=== PATIENT | male | born 1950 | race Caucasian/White ===

== ENCOUNTER 2018-01-06 14:11 | Observation (INO) | payer OTHER ==
[~2018-01-06] VITALS: Ht 177.8 cm; Wt 117.9 kg
[~2018-01-06 14:11] MED LIST: ASPIR 8181 MG PO; ASPIRIN EC325 M1 PO; ASPIRIN325 PO; BRILINTA90 MG PO; FISH OIL 1,001000 M2 PO; FISH OIL 500 M1 EAC1 PO; GLUCOPHAGE XR500 MG PO; HYDROCODONE-ACE15 ML PO; IMDUR 30 MG TAB30 M1 PO; LIPITOR 20 MG T20 M1 PO; LIPITOR10 MG; LISINOPRIL10 MG PO; LOPRESSOR25 PO; LORTAB 5-325 M1 EACH PO; METFORMIN HCL500 MG PO; NITRO-TIME6.5 MG PO; NITROGLYCERIN0.4 MG SUBLING; NORVASC5 MG PO; PLAVIX 75 MG TA75 M1 PO; PLAVIX 75 MG TA75 MG PO; PROTONIX40 M1 PO; RANEXA500 MG PO; SIMVASTATIN40 MG PO; SIMVASTATIN80 MG PO; TOPROL XL25 MG PO; TOPROL XL50 MG PO; XANAX 0.5 MG0.5 MG PO; ZANTAC 150MG T150 M1
[2018-01-06 14:14] VITALS: BP 169/61
[2018-01-06 14:45] LABS: ABSOLUTE BASOPHILS 0.1 thou/uL (0.0-0.2); ABSOLUTE EOSINOPHILS 0.2 thou/uL (0.0-0.7); ABSOLUTE LYMPHOCYTES 3.6 thou/uL (0.8-5.3); ABSOLUTE MONOCYTES 0.8 thou/uL (0.0-1.2); ABSOLUTE NEUTROPHILS 4.9 thou/uL (1.6-8.1); BASOPHILS 0.8 %; EOSINOPHILS 1.8 %; HEMOGLOBIN 14.1 gm/dL (14.0-18.0); LYMPHOCYTES 37.8 %; MCH 28.9 pg (26.0-34.0); MCHC 33.5 g/dL (28.0-37.0); MCV 86.3 fL (80.0-100.0); MPV 8.4 fl. (7.2-11.1); NUCLEATED RBCS 0 /100WBC; PLATELET COUNT* 296 thou/uL (150-400); POLYS 51.6 %; RBC 4.87 mil/uL (4.50-6.00); WBC 9.6 thou/uL (4.0-11.0)
[2018-01-06 14:53] LABS: ANION GAP 6 mmol/L (7-16); BUN 10 mg/dL (7-18); CALCIUM 8.7 mg/dL (8.5-10.1); CHLORIDE 104 mmol/L (98-107); CO2 31 mmol/L (21-32); CREATININE 0.9 mg/dL (0.6-1.3); GLUCOSE 198 mg/dL (70-99); POTASSIUM 3.6 mmol/L (3.5-5.1); SODIUM 141 mmol/L (136-145)
[2018-01-06 15:04] LABS: ALBUMIN 3.5 g/dL (3.4-5.0); ALKALINE PHOSPHATASE 94 U/L (46-116); LIPASE 104 U/L (73-393); NT-PRO BRAIN NAT PEPTIDE 20 pg/mL (<300); SGOT 20 U/L (15-37); SGPT 26 U/L (30-65); TOTAL BILIRUBIN 0.3 mg/dL (<0.1-1.0); TOTAL PROTEIN 7.4 g/dL (6.4-8.2); TROPONIN-I LEVEL <0.06 ng/mL (<0.06)
[2018-01-06 16:30] VITALS: BP 150/74
[2018-01-06 16:35] VITALS: BP 135/72
--- NOTE | 2018-01-06 16:37 | EKG ---
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1950 Requested By: Max Abbott Order Number: [id number] MD: Kameron Rivas Measurements Intervals [place] Rate: 63 P: 28 [place]: 167 QRS: 1 QRSD: 101 T: 36 QT: 430 QTc: 441 Interpretive Statements Sinus rhythm Abnormal R-wave progression, early transition Minimal ST depression, lateral leads Compared to ECG 05/07/2017 13:11:51 ST (T wave) deviation now present Electronically Signed On 01-06-2018 16:37:27 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
[2018-01-06 20:00] VITALS: BP 154/76
[2018-01-07 00:04] VITALS: BP 113/40
[2018-01-07 04:00] VITALS: BP 110/52
[2018-01-07 08:45] VITALS: BP 110/48
[2018-01-07 11:58] VITALS: BP 155/64
[2018-01-07 14:47] VITALS: BP 155/64
[2018-01-07 15:53] VITALS: BP 141/70
--- NOTE | 2018-01-07 15:59 | CARDNUC ---
[place] [address] CARDIAC NUCLEAR IMAGING REPORT Name: RAMAN GRACE Room: [address] MJaceRJace#: [id number] Admission: 01/06/18 Attend Phys: Rosy Gunter Discharge: Date of : 52 Date of Service: 01/07/18 1559 Report #: [id number] THIS REPORT FOR: //name// APPROVED REPORT Exam: Nuclear Stress Test Indication: CHEST PAIN Patient Location: In-Patient Room #: 203 Stress Tech: Amy Nelson Stress Nurse: Aletha Jamil RN Ht: 5 ft 10 in Wt: 259 lbs BSA: 2.33 m2 BMI: 37.15 Medical History Medical History: CAD, IL, PCI Medications: Isosorbide, metoprolol, amlodipine, ASA, fish oil Allergies: NKDA Cardiac Risk Factors: HTN, HLP, DM, former smoker Previous Cardiac Procedures: PCI Meds Held (24 hrs): Isosorbide, metoprolol Stress Test Details Stress Test: Pharmacologic stress testing performed using 0.4 mg of regadenoson per 5 mL given IV over 10 seconds. HR Resting HR: 79 bpm Max Heart Rate (APMHR): 154 bpm Max HR Achieved: 91 bpm Target HR (85% APMHR): 130 bpm % of APMHR: 59 Recovery HR: 81 bpm BP Resting BP: 156/80 mmHg Max BP: 130/77 mmHg ECG Resting ECG: Sinus Rhythm, normal EKG Stress ECG: Sinus Rhythm, normal EKG ST Change: None Arrhythmia: None Recovery ECG: Sinus Rhythm, normal EKG Recovery ST Change: [place] [address] CARDIAC NUCLEAR IMAGING REPORT Name: RAMAN GRACE Room: [address]#: [id number] Admission: 01/06/18 Attend Phys: Rosy Gunter Discharge: Date of : 52 Date of Service: 01/07/18 1559 Report #: [id number] Recovery Arrhythmia: None Clinical Reason for Termination: Completed protocol Stress Symptoms: mild chest tightness that resolved spontaneously The patient had no significant symptoms with Lexiscan infusion. Stress ECG Conclusion The baseline 12-lead electrocardiogram showed normal sinus rhythm without significant ST or T wave abnormality. EKGs during and post Lexiscan infusion show sinus rhythm with no significant ST or T wave changes when compared to baseline. There were no stress-induced arrhythmias. NM EXAM: Myocardial Perfusion REST/STRESS Imaging Protocol: Stress Tc-99m/Rest Tc-99m 2 days Pharmacologic Stress Pharmacologic stress test was performed by injecting Regadenoson 0.4 mg IV push followed by the intravenous injection of 37.0 mCi of Tc-99m Sestamibi. Time of stress injection: 1220 Date: 01/07/2018 Time of stress imagin Date: 01/07/2018 Administration Route: IV Administration Site: Left AC Heart Rate at time of stress injection: 91 bpm. Gated Stress SPECT was performed 40 minutes after stress injection. The images were gated to evaluate regional wall motion and calculate left ventricular ejection fraction. Prone imaging was performed. Study Quality Study: Good Artifact: No artifact Study Data Post stress, the left ventricular ejection was 63%.. Perfusion Post stress myocardial perfusion images show uniform uptake of the radioisotope throughout the myocardium [place] [address] CARDIAC NUCLEAR IMAGING REPORT Name: RAMAN GRACE Room: [address] M.R.#: [id number] Admission: 01/06/18 Attend Phys: Rosy Gunter Discharge: Date of : 52 Date of Service: 01/07/18 1559 Report #: [id number] Normal left ventricular wall motion. Nuclear Conclusion ECG Findings: negative for ischemia Clinical Findings: negative for ischemia Nuclear Findings: negative for ischemia Exercise Capacity: not assessed Left Ventricular Function: normal Risk Study: low Myocardial perfusion images show no defect to suggest ischemia or infarct. Left ventricular systolic function is normal on gated studies. This is a low risk study. <Conclusion> The baseline 12-lead electrocardiogram showed normal sinus rhythm without significant ST or T wave abnormality. EKGs during and post Lexiscan infusion show sinus rhythm with no significant ST or T wave changes when compared to baseline. There were no stress-induced arrhythmias. <ELECTRONICALLY SIGNED> By: Kameron Rivas MD, FACC 01/07/18 1559 1559 1559 Kameron Rivas MD, FACC /INF
--- NOTE | 2018-01-07 16:31 | CON ---
[address] [address] CONSULTATION Name: RAMAN GRACE Room: [address] Sera Bowden#: [id number] Admission: 01/06/18 Attend Phys: Matt Duque Discharge: Date of : 52 Report #: [id number] THIS REPORT FOR: //name// CC: David Gunter DATE OF SERVICE: 01/07/2018 HISTORY OF PRESENT ILLNESS: The patient is a 67-year-old white male who came to the emergency room complaining of chest pain. The patient initially presented in July 2007. He apparently had been at a convention in [place], [place]. He began to have pain in his chest, went into his back. Went into his jaw. This persisted, so he drove back to [place]. He came to the emergency room here at [facility]. He was noted to have nonspecific ST-segment changes. He underwent a cardiac catheterization by Dr. David Kimble in July 2007, that showed normal left ventricular function. The LAD and circumflex had no significant disease. The right coronary artery had a mid 90% stenosis. He apparently was then transferred over to [facility] by ambulance and Dr. Kimble placed a single stent in his right coronary artery. He actually had a repeat heart catheterization a month later by Dr. Valente here at [facility] from the right radial artery that showed an ejection fraction of 60% with no significant restenosis of the stent. It is felt his chest pain was noncardiac. He then presented in December 2015, with recurrent chest pain. Dr. Kimble performed a repeat cardiac catheterization. This was performed from the right femoral artery. He was found to have ejection fraction of 60%. The LAD had a myocardial bridge. The right coronary had mid 80% stenosis, distal edge restenosis of the stent. Dr. Kimble then placed two drug-eluting stents. During the procedure, apparently he developed ventricular fibrillation and had to be cardioverted. The patient was placed on Brilinta. I actually performed repeat cardiac catheterization in May 2017, for chest pain from the right radial artery. Ejection fraction of 60%. He was found to have no significant restenosis of the stents. It is felt his chest pain was noncardiac. The patient states he then saw Dr. Kimble in September 2017. He does not exercise on a regular basis because of chronic back pain. For the past few days, he has had some discomfort in his chest that goes into his back. It is not related to food or exertion. Occasionally, it goes into his jaw, it can make him short of breath and nauseated. He also notes he gets short of breath when he exerts himself, has had no edema, fever or cough. He notes occasional lightheadedness, no palpitation or syncope. Because of these symptoms, he came to the emergency room and was admitted last night. PAST MEDICAL HISTORY: Otherwise significant for inner ear surgery, 3 back surgeries, fatty tumor removal, removal of basal cell carcinoma, finger surgery as a child, diabetes, hypertension, [place] [address] CONSULTATION Name: RAMAN GRACE Room: [address] Sera Bowden#: [id number] Admission: 01/06/18 Attend Phys: Matt Duque Discharge: Date of : 52 Report #: [id number] MEDICATIONS: Consist of Xanax, amlodipine, aspirin, hydrocodone, Imdur, metformin, metoprolol, Protonix, and simvastatin. ALLERGIES: He has intolerance to MORPHINE. FAMILY HISTORY: His father had congestive heart failure. 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 He lives in [place] with his . Quit smoking years ago, rarely drinks alcohol. REVIEW OF SYSTEMS: He has had no history of stroke. He is overweight, standing 5 feet 9 inches and weighing 260 pounds. He has a history of sleep apnea, although he no longer uses CPAP. No history of peptic ulcer disease, liver disease, or kidney disease. He has had a basal cell carcinoma removed from his face in the past. No psychiatric illness. No chronic skin condition. PHYSICAL EXAMINATION: GENERAL: Revealed an elderly male who appeared in no distress. VITAL SIGNS: Blood pressure 110/50, pulse 60. He is afebrile. HEENT: He is anicteric. Conjunctivae are pink. Mucous membranes are moist. NECK: Veins do not appear distended. No carotid bruits heard. Neck was supple. CHEST: Clear to auscultation. HEART: Regular rate and rhythm. No significant murmur. ABDOMEN: Obese, soft, and nontender. EXTREMITIES: Had no edema. Dorsalis pedis pulse 2+ bilaterally. SKIN: Warm and dry. NEUROLOGIC: Nonfocal. LYMPH: No adenopathy. MUSCULOSKELETAL: No joint effusion. His ECG shows a sinus rhythm, no significant ST or T-wave change. His workup last night he had portable chest x-ray that showed normal heart size, clear lung lewis. Carotid Doppler study in 2014 showed no significant stenosis. His lab work last night, glucose 198, potassium 3.6, creatinine 0.9. Liver function studies were normal. Troponins all 0.06. His white blood cell count was 9.6, hemoglobin 14.1. IMPRESSION AND RECOMMENDATIONS: 1. Chest pain. The patient has had multiple stents in the right coronary artery. The pain with some features of angina. However, no evidence of acute myocardial infarction. The patient actually just had a repeat heart catheterization in May 2017, which is only a little over 6 months ago with no restenosis. Suspect pain noncardiac. At this time, I would recommend screening. Since the patient is on a beta julia, [place] [address] CONSULTATION Name: RAMAN GRACE Room: [address] MJace.#: [id number] Admission: 01/06/18 Attend Phys: Matt Duque Discharge: Date of : 52 Report #: [id number] Cardiolite. 2. History of coronary artery stenting. I would continue aspirin. 3. Hypertension. The patient is on a calcium julia, beta julia. 4. Hyperlipidemia. The patient is on a statin drug. 5. Diabetes. 6. Chronic back pain. 7. History of sleep apnea. <ELECTRONICALLY SIGNED> By: Elia Herrera MD, FACC 01/07/18 1631 0909 1022Dnicole Herrera MD, FACC /nt
== END 2018-01-07 16:30 | disposition home or self-care (01) ==
LOC: M.ERS 14:11 → M.2W 15:30 → M.TBA-ER 15:30 → M.2W 15:30
PROVIDERS: Emergency Medicine Emergency Medical Services; ADMIT Internal Medicine
DX: I16.0 Hypertensive urgency (principal); G89.29 Other chronic pain; M54.9 Dorsalgia, unspecified; E78.5 Hyperlipidemia, unspecified; I10 Essential (primary) hypertension; I25.10 Atherosclerotic heart disease of native coronary artery without angina pectoris; I25.2 Old myocardial infarction; E11.8 Type 2 diabetes mellitus with unspecified complications; F41.9 Anxiety disorder, unspecified; Z87.891 Personal history of nicotine dependence; Z95.5 Presence of coronary angioplasty implant and graft

== ENCOUNTER 2018-03-01 09:10 | Emergency (ER) | payer OTHER ==
[~2018-03-01] VITALS: Ht 177.8 cm; Wt 119.3 kg
[2018-03-01 09:40] LABS: ABSOLUTE BASOPHILS 0.1 thou/uL (0.0-0.2); ABSOLUTE EOSINOPHILS 0.2 thou/uL (0.0-0.7); ABSOLUTE MONOCYTES 0.6 thou/uL (0.0-1.2); ABSOLUTE NEUTROPHILS 5.5 thou/uL (1.6-8.1); BASOPHILS 0.7 %; HEMATOCRIT 39.7 % (42.0-52.0); HEMOGLOBIN 13.4 gm/dL (14.0-18.0); LYMPHOCYTES 31.7 %; MCH 29.2 pg (26.0-34.0); MCHC 33.7 g/dL (28.0-37.0); MCV 86.7 fL (80.0-100.0); MONOCYTES 6.7 %; MPV 8.2 fl. (7.2-11.1); NUCLEATED RBCS 0 /100WBC; PLATELET COUNT* 285 thou/uL (150-400); POLYS 58.9 %; RBC 4.58 mil/uL (4.50-6.00); RDW-CV 14.1 % (10.5-14.5); WBC 9.3 thou/uL (4.0-11.0)
[2018-03-01 09:45] LABS: ANION GAP 8 mmol/L (7-16); BUN 7 mg/dL (7-18); CALCIUM 8.4 mg/dL (8.5-10.1); CHLORIDE 104 mmol/L (98-107); CO2 29 mmol/L (21-32); CREATININE 0.9 mg/dL (0.6-1.3); GLUCOSE 213 mg/dL (70-99); POTASSIUM 3.9 mmol/L (3.5-5.1); SODIUM 141 mmol/L (136-145)
[2018-03-01 09:50] LABS: PROTIME 9.8 Seconds (9.20-11.50)
[2018-03-01 09:57] LABS: ALBUMIN 3.4 g/dL (3.4-5.0); ALKALINE PHOSPHATASE 88 U/L (46-116); LIPASE 137 U/L (73-393); NT-PRO BRAIN NAT PEPTIDE 23 pg/mL (<300); SGOT 23 U/L (15-37); SGPT 26 U/L (30-65); TOTAL BILIRUBIN 0.2 mg/dL (<0.1-1.0); TOTAL PROTEIN 7.2 g/dL (6.4-8.2); TROPONIN-I LEVEL <0.06 ng/mL (<0.06)
[2018-03-01 11:49] VITALS: BP 143/66
[2018-03-01 11:51] LABS: URINE BILIRUBIN NEGATIVE (Negative); URINE BLOOD NEGATIVE (Negative); URINE CLARITY CLEAR; URINE COLOR YELLOW; URINE GLUCOSE-RANDOM 1+ (Negative); URINE KETONES NEGATIVE (Negative); URINE LEUKOCYTES-REFLEX NEGATIVE (Negative); URINE NITRITE-REFLEX NEGATIVE (Negative); URINE PROTEIN NEGATIVE (Negative); URINE SPECIFIC GRAVITY 1.025 (1.005-1.030); URINE UROBILINOGEN 0.2 E.U./dl (0.2-1.0)
--- NOTE | 2018-03-01 16:40 | EKG ---
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1950 Requested By: Julio César Smith Order Number: [id number] MD: Kameron Rivas Measurements Intervals [place] Rate: 59 P: 50 CT: 180 QRS: 17 QRSD: 99 T: 30 QT: 438 QTc: 434 Interpretive Statements Sinus rhythm Abnormal R-wave progression, early transition Compared to ECG 01/06/2018 14:16:16 ST (T wave) deviation no longer present Electronically Signed On 03-01-2018 16:40:40 CDT by Kameron Rivas [email or web address] <ELECTRONICALLY SIGNED> By: Kameron Rivas MD, [facility] 03/01/18 [facility] 8 8 Kameron Rivas MD, FACC /EPI
== END 2018-03-01 11:50 | disposition home or self-care (01) ==
LOC: M.ERS 09:10
PROVIDERS: Emergency Medicine
DX: R42 Dizziness and giddiness (principal); E11.65 Type 2 diabetes mellitus with hyperglycemia; I10 Essential (primary) hypertension

== ENCOUNTER 2018-06-13 09:27 | Emergency (ER) | payer OTHER ==
[~2018-06-13] VITALS: Ht 177.8 cm; Wt 117.5 kg
[2018-06-13] MEDS ORDERED: LIPITOR10 MG PO (09:40)
[2018-06-13] MEDS ORDERED: DIABETIC MED (09:41)
[2018-06-13 10:42] VITALS: BP 150/68
== END 2018-06-13 10:43 | disposition home or self-care (01) ==
LOC: M.ERS 09:27
DX: S20.211A Contusion of right front wall of thorax, initial encounter (principal); I10 Essential (primary) hypertension; E11.9 Type 2 diabetes mellitus without complications; Z95.5 Presence of coronary angioplasty implant and graft; W18.39XA Other fall on same level, initial encounter; Y93.89 Activity, other specified; Y92.89 Other specified places as the place of occurrence of the external cause; Y99.8 Other external cause status

== ENCOUNTER 2018-11-18 12:48 | Emergency (ER) | payer OTHER ==
[~2018-11-18] VITALS: Ht 177.8 cm; Wt 117.0 kg
[~2018-11-18 12:48] MED LIST changes: +DIABETIC MED; +LIPITOR10 MG PO
[2018-11-18] MEDS ORDERED: NAPROSYN500 MG PO (14:26)
[2018-11-18 14:54] VITALS: BP 158/74
== END 2018-11-18 14:54 | disposition home or self-care (01) ==
LOC: M.ERS 12:48
DX: S46.811A Strain of other muscles, fascia and tendons at shoulder and upper arm level, right arm, initial encounter (principal); S89.82XA Other specified injuries of left lower leg, initial encounter; S89.81XA Other specified injuries of right lower leg, initial encounter; I10 Essential (primary) hypertension; E11.9 Type 2 diabetes mellitus without complications; Z95.5 Presence of coronary angioplasty implant and graft; W10.8XXA Fall (on) (from) other stairs and steps, initial encounter; Y93.89 Activity, other specified; Y92.89 Other specified places as the place of occurrence of the external cause; Y99.8 Other external cause status

== ENCOUNTER → 2019-01-20 | Outpatient (CLI) | payer OTHER ==
[~2019-01-20] MED LIST changes: +NAPROSYN500 MG PO
== END ==
LOC: M.MRI 11:28
DX: S43.401A Unspecified sprain of right shoulder joint, initial encounter (principal); M19.011 Primary osteoarthritis, right shoulder; W19.XXXA Unspecified fall, initial encounter; Y93.89 Activity, other specified; Y92.89 Other specified places as the place of occurrence of the external cause; Y99.8 Other external cause status

== ENCOUNTER → 2019-10-11 | Outpatient (CLI) | payer OTHER | LOC: M.ULTRA 08:20 | DX: I65.22 Occlusion and stenosis of left carotid artery (principal) ==

== ENCOUNTER → 2021-03-24 | Outpatient (CLI) | payer OTHER ==
[2021-03-24] VITALS (12 sets, daily range): BP systolic 121–135; BP diastolic 42–59
[~2021-03-24] VITALS: Ht 177.8 cm; Wt 118.8 kg
[~2021-03-24] MED LIST changes: +ASA81BEC PO; +GLIPIZIDE 10 MG10 MG PO; +NORCO5 PO
[2021-03-24 09:51] LABS: HEMATOCRIT 37.7 % (42.0-52.0); HEMOGLOBIN 12.5 gm/dL (14.0-18.0); MCH 28.6 pg (26.0-34.0); MCHC 33.3 g/dL (28.0-37.0); MCV 85.9 fL (80.0-100.0); MPV 7.9 fl. (7.2-11.1); RBC 4.38 mil/uL (4.50-6.00); RDW-CV 14.1 % (10.5-14.5); WBC 10.7 thou/uL (4.0-11.0)
[2021-03-24 09:59] LABS: ANION GAP 5 mmol/L (7-16); BUN 11 mg/dL (7-18); CALCIUM 8.6 mg/dL (8.5-10.1); CHLORIDE 106 mmol/L (98-107); CO2 30 mmol/L (21-32); GLUCOSE 176 mg/dL (70-99); POTASSIUM 4.3 mmol/L (3.5-5.1); SODIUM 141 mmol/L (136-145)
[2021-03-24 10:04] LABS: ALBUMIN 3.3 g/dL (3.4-5.0); ALKALINE PHOSPHATASE 97 U/L (46-116); APTT 25.9 Seconds (25.0-31.3); CHOLESTEROL 145 mg/dL (<200); HDL CHOLESTEROL 36 mg/dL (>40); LDL CHOLESTEROL 75 mg/dL (<100); PROTIME 10.3 Seconds (9.20-11.50); SGOT 18 U/L (15-37); SGPT 31 U/L (30-65); TOTAL BILIRUBIN 0.3 mg/dL (<0.1-1.0); TRIGLYCERIDE 170 mg/dL (<150); VLDL 34 mg/dL (<40)
[2021-03-24 10:05] LABS: SERUM ASSESSMENT Clear
--- NOTE | 2021-03-24 14:23 | CARD ---
[address] [address] CARDIAC CATH REPORT Name: RAMAN GRACE Room: [facility] Carmen.#: [id number] Admission: 03/24/21 Attend Phys: David Kimble MD, Discharge: Date of : 52 Report #: [id number] THIS REPORT FOR: cc: HARITHA SERRANO MD, HEATHER L. MD Holkins, John M. MD [facility] ~ APPROVED REPORT Study performed: 03/24/2021 11:22:08 Patient Details Patient Status: Out-Patient Room #: The patient is a 70 year-old male Event Personnel David Kimble Induction Heat Treater, Luís Bower RN Pen Maker, Vanda Gibson RTR Monitor, Clint Olivares Scrub Procedures Performed Art Access - R radial artery, Left Heart Cath w/or w/o Coronaries LHC, Hemostasis with Radial Vasc band Indication Chest pain Risk Factors Obesity, Hypercholesterolemia, Hypertension Previous Procedures/Diagnoses Previous PCI Admission/Lab Medications/Medications given during procedure Nitroglycerin IA 200 mcg, Verapamil IA 2.5 mg, Nitroglycerin IA 200 mcg, Verapamil IA 2.5 mg Procedure Narrative The patient was brought electively to the Cardiac Catheterization Laboratory and was prepped and draped in a sterile manner. The right wrist was infiltrated with 2% Lidocaine subcutaneous anesthesia. IV conscious sedation was used throughout procedure with appropriate monitoring and was performed in the presence of a registered nurse who was an independent trained [place] [address] CARDIAC CATH REPORT Name: RAMAN GRACE [id number] Admission: 03/24/21 Attend Phys: David Kimble MD, Discharge: Date of : 52 Report #: [id number] performing the procedure. A 6F Slender Limon sheath was inserted into the right radial artery. Coronary angiography was performed using coronary diagnostic catheters. The right coronary system was accessed and visualized with a 6F JR4 catheter. The left coronary system was accessed and visualized with a 6F TIGER 4.0 catheter. The left ventricle was accessed and visualized with a 6F Pigtail catheter. Left ventricular/Aortic Valve gradient assessed via catheter pullback. Closure device was deployed with a 6 Fr Vasc-Band Lng 27cm. The patient tolerated the procedure well and there were no complications associated with the procedure. There was no hematoma. Procedure initially attempted from right femoral artery, using ultrasound, but unable to gain access. Switched to right radial artery access successfully. Intraoperative Conscious Sedation Sedation start time: 11:19 Case end Time: 12:19 Fentanyl 25 mcg Versed 1 mg Fluoro Time: 4.1 minutes Dose: DAP 29862 cGycm2 914 mGy Contrast Type and Amount: Omnipaque 140 ml Diagnostic Cath Left Main 10% mid vessel narrowing LAD 30% mid LAD narrowing Circumflex 40% proximal circumflex narrowing Right Coronary Large dominant vessel with 30% proximal in-stent narrowing and 30% mid vessel narrowing Left Ventriculography The left ventricle is normal in size with normal contractility. The left ventricular ejection fraction is estimated to be 65%. Left ventricular wall motion abnormalities are not present. There is no mitral insufficiency. Hemodynamics The aortic pressure is 128/52 mmHg with a mean of 84 mmHg. The left ventricular pressure is 126/7 mmHg with a mean of mmHg. The left ventricular end diastolic pressure is 25 mmHg. Conclusion 1. Modest coronary artery disease characterized by the following: A 10% mid left [place] [address] CARDIAC CATH REPORT Name: RAMAN GRACE Room: [facility]#: [id number] Admission: 03/24/21 Attend Phys: David Kimble MD, Discharge: Date of : 52 Report #: [id number] B 30% mid LAD narrowing C 40% proximal circumflex narrowing D 30% proximal right coronary artery in-stent narrowing with 30% mid vessel narrowing, this being a dominant vessel 2. Normal left ventricular systolic function, estimate ejection fraction being 65% 3 moderately severe elevation of left ventricular diastolic pressure at rest Recommendations Cardiac Risk Reduction Program Weight Loss Reduction Program Diagnostic Cath Approved by: David Kimble MD Date/Time: 03/24/2021 14:21:34 <ELECTRONICALLY SIGNED> By: David Kimble MD, [facility] 03/24/21 1423 1423 1423Joyimi Kimble MD, [facility] /INF
--- NOTE | 2021-03-24 17:43 | EKG ---
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
--- NOTE | 2021-03-25 09:32 | H ---
[place] [address] HISTORY AND PHYSICAL Name: RAMAN GRACE Room: [facility].#: [id number] Admission: 03/24/21 Attend Phys: David Kimble MD, Discharge: Date of : 52 Report #: [id number] THIS REPORT FOR: cc: HARITHA SERRANO MD, HEATHER L. MD Holkins, John M. MD [facility] ~ DOC #: [id number] David Kimble MD [facility] ADMIT DATE: 03/24/2021 The patient to be admitted on 03/24/2021, dictated 03/19/2021. He will be admitted for cardiac catheterization on that date. HISTORY OF PRESENT ILLNESS: The patient is a very pleasant 70-year-old male with a history of complex coronary artery disease, status post remote myocardial infarction and multiple prior PCIs, recently he has noted relatively frequent episodes of chest pain. In the last several weeks, they have increased in frequency and are typical of his prior anginal syndrome. They are responsive to sublingual nitroglycerin. He has occasionally used 2-3 nitrates for pain relief. There is underlying hypertension, diabetes, hyperlipidemia and weight excess. He is compliant with medical regimen including Xanax, amlodipine, aspirin, atorvastatin, fish oil, glipizide, hydrocodone/acetaminophen, Imdur, lisinopril, metoprolol tartrate, p.r.n. nitroglycerin and Protonix. PAST MEDICAL HISTORY: Remarkable for hypertension, hypercholesterolemia, diabetes, and weight excess. SOCIAL HISTORY: He no longer smokes. PHYSICAL EXAMINATION: GENERAL: Reveals an overweight male. VITAL SIGNS: His blood pressure is 135/60, pulse rate is 75, respirations are 18 per minute. NECK: Jugular venous pressure is normal. CHEST: Clear. CARDIAC: Reveals normal first and second heart sounds without murmurs or gallops. ABDOMEN: Moderately obese. EXTREMITIES: Without edema with intact femoral, pedal and radial pulses. IMPRESSION: 1. Unstable angina. 2. Coronary artery disease, status post [place] [address] HISTORY AND PHYSICAL Name: RAMAN GRACE Room: [facility]#: [id number] Admission: 03/24/21 Attend Phys: David Kimble MD, Discharge: Date of : 52 Report #: [id number] percutaneous coronary interventions. 3. Hypertension. 4. Type 2 diabetes. 5. Left carotid stenosis. 6. Mixed hyperlipidemia. 7. Exogenous obesity. RECOMMENDATIONS: Given the aforementioned clinical scenario with recrudescence angina and known coronary artery disease, I would recommend proceeding with cardiac catheterization to define current coronary anatomy and outline the prospects for subsequent therapy. Procedure and risks have been discussed with the patient. David Kimble MD [facility] <ELECTRONICALLY SIGNED> By: David Kimble MD, [facility] 03/25/21 0932 0801 0817Dvaid Kimble MD, FAC /nt
== END | disposition home or self-care (01) ==
LOC: M.CL 09:13
PROVIDERS: ATTEND Internal Medicine
DX: R07.9 Chest pain, unspecified (principal); I25.10 Atherosclerotic heart disease of native coronary artery without angina pectoris; T82.855A Stenosis of coronary artery stent, initial encounter; I10 Essential (primary) hypertension; E11.9 Type 2 diabetes mellitus without complications; I25.2 Old myocardial infarction; Z98.890 Other specified postprocedural states; Z79.899 Other long term (current) drug therapy; Z86.73 Personal history of transient ischemic attack (TIA), and cerebral infarction without residual deficits; Z87.891 Personal history of nicotine dependence; Y83.8 Other surgical procedures as the cause of abnormal reaction of the patient, or of later complication, without mention of misadventure at the time of the procedure